=== PATIENT | male | born 2000 | race Caucasian/White ===

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

== ENCOUNTER 2021-02-14 19:30 | Emergency (ER) | payer OTHER ==
[~2021-02-14] VITALS: Ht 182.9 cm; Wt 68.0 kg
[~2021-02-14 19:30] MED LIST: TRAMADOL 50 MG50 MG PO
[2021-02-14 19:40] VITALS: BP 107/62
[2021-02-14] MEDS ORDERED: MOBIC7.5 MG PO (20:41)
--- NOTE | 2021-02-14 23:51 | NUR ---
ATTEMPTED TO CALL PT FOR POSITIVE COVID. LEFT MESSAGE AT [phone] TO CALL ER.
== END 2021-02-14 21:03 | disposition home or self-care (01) ==
LOC: ER 19:30
PROVIDERS: Nurse Practitioner
DX: R07.89 Other chest pain (principal); Z20.822 Contact with and (suspected) exposure to COVID-19; F17.210 Nicotine dependence, cigarettes, uncomplicated; F95.2 Tourette's disorder; Z88.8 Allergy status to other drugs, medicaments and biological substances; Z88.6 Allergy status to analgesic agent